=== PATIENT | male | born 1940 | race Caucasian/White ===

== ENCOUNTER 2025-02-24 16:05 | Emergency (ER) | payer SELFPAY ==
[2025-02-24 16:06] VITALS: BP 134/75
[2025-02-24 16:14] VITALS: BMI 28.3
[2025-02-24 16:24] LABS: % Basophils 0.8 % (0-2); % Eosinophils 3.5 % (0-6); % Immature Granulocytes 0.4 % (0-0.5); % Lymphocytes 10.8 % (20.5-51.1); % Monocytes 13.4 % (1.7-9.3); % Neutrophils 71.1 % (42.2-75.2); Absolute Basophils 0.1 10^3/uL (0-0.2); Absolute Eosinophils 0.3 10^3/uL (0-0.7); Absolute Monocytes 1.2 10^3/uL (0.1-0.6); Absolute Neutrophils 6.6 10^3/uL (1.4-6.5); Hemoglobin 14.4 g/dL (13.0-18.0); Mean Corp Hgb Conc. 34.3 g/dL (33.0-37.0); Mean Corpuscular Hgb 30.7 pg (27.0-31.0); Mean Corpuscular Volume 89.6 fL (80.0-94.0); Mean Platelet Volume 10.2 fL (7.4-10.4); Nucleated Red Blood Cells % 0 % (-); Platelet Count 198 10^3/uL (130-400); Red Blood Cell Count 4.69 10^6/uL (4.70-6.10); Red Cell Dist. Width 14.6 % (11.5-14.5); White Blood Cell Count 9.2 10^3/uL (4.8-10.8)
[2025-02-24 16:49] LABS: ALT (SGPT) 42 U/L (0-50); AST (SGOT) 47 U/L (17-59); Albumin 4.2 g/dl (3.5-5.0); Alkaline Phosphatase 90 U/L (38-126); Blood Urea Nitrogen 18 mg/dl (9-20); Carbon Dioxide 25 mmol/L (22-30); Chloride 112 mmol/L (98-107); Estimated Creatinine Clearance 48 ml/min; Glucose 122 mg/dl (70-99); Potassium 3.7 mmol/L (3.5-5.1); Sodium 141 mmol/L (135-145); Total Bilirubin 1.1 mg/dl (0.2-1.3); Total Protein 6.7 g/dl (6.3-8.2); eGFR > 60.00
[2025-02-24 17:00] VITALS: BP 129/72
--- NOTE | 2025-02-24 17:15 | ED.GENMED ---
History of Present Illness
General
Chief Complaint: Fainting Sensation
Source: patient, family (Daughter) and other (External records from urgent care)
Exam Limitations: none
Time Seen by Provider: 02/24/25 16:19
Nursing documentation reviewed up to this point in time: agreed with
History of Present Illness
History of Present Illness:
84-year-old male with a past medical history of hypertension, hyperlipidemia, atrial fibrillation status post watchman, CVA on Plavix who presents to the emergency department with his daughter for evaluation after syncopal episode. Patient reports
that he was feeling mildly lightheaded this morning; when he went to lunch he passed out. He apparently collapsed and struck his head. He initially went to urgent care for assessment and was directed to the emergency room for full evaluation. He
says that he feels completely normal now has no complaints. He denies any associated chest pain, shortness of breath, palpitations. He denies any headache, neck pain. He denies any nausea or vomiting. He denies any injuries to his extremities.
He denies any other complaints. He was noted to be in atrial fibrillation on urgent care EKG; he has known history of A-fib. He follows with Dr. Fuchs for cardiology.
Past History
Past History
ED Past Medical History: CAD, GERD, HTN, Hypercholesterolemia and Other (Arthritis, vertigo, kidney stones, hiatal hernia)
Social History
Tobacco: Non-smoker
Personal:
Living: with family
Employment: Retired
Review of Systems
Review of Systems
All Other Systems: ROS reviewed and negative except as documented in HPI and ROS
Constitutional: Denies fever
Respiratory: Denies trouble breathing
Cardiac: Reports syncope; Denies chest pain or diaphoresis
ABD/GI: Denies abdominal pain, nausea, vomiting or diarrhea
: Denies flank pain
Musculoskeletal: Denies joint pain, neck pain or back pain
Neurological: Denies headache
Phy Exam
Physical Exam
Physical Exam:
General: Awake, alert, oriented x3; no acute distress
Head: Normocephalic, atraumatic
Eyes: Conjunctiva normal, EOMI, pupils equal round reactive to light bilaterally
Throat: Airway intact, handling secretions
Neck: Trachea midline, no cervical spine tenderness
Lungs: Clear to auscultation bilaterally, no wheezing, rales, rhonchi
Heart: Regular rate and irregular rhythm, no murmurs, gallops, or rubs
Abd: Soft, non distended, nontender
Neuro: Cranial nerves grossly intact, speech fluid, no gross motor or sensory deficits
Skin: No signs of trauma
Extremities: Atraumatic, equal pulses in all extremities
Scores
Heart Failure Risk
Heart Failure Risk Score: Not Applicable
Heart Score for Chest Pain Patients
STEMI patient?: Not applicable
Withdrawal Assessment of Alcohol
Withdrawal Assessment Completed?: Not applicable
Course
Orders/Labs/Results
Orders:
Orders
02/24/25 16:09
EKG [Electrocardiogram (*1)] Urgent
Reason for Study: Vertigo / Dizzy
EKG- Treatment ONCE
02/24/25 16:14
Complete Blood Count/With Diff Urgent
Comprehensive Metabolic Panel Urgent
02/24/25 17:15
CT Head W/o Iv Contrast Urgent
Comment:
Reason For Exam: syncope and collapse, head strike on Plavix
Abnormal Lab Results
02/24/25
16:14
RBC 4.69 L 10^6/uL
(4.70-6.10)
RDW 14.6 H %
(11.5-14.5)
Absolute Neuts (auto) 6.6 H 10^3/uL
(1.4-6.5)
Absolute Lymphs (auto) 1.0 L 10^3/uL
(1.2-3.4)
Absolute Monos (auto) 1.2 H 10^3/uL
(0.1-0.6)
Lymphocytes % 10.8 L %
(20.5-51.1)
Monocytes % 13.4 H %
(1.7-9.3)
Chloride 112 H mmol/L
(98-107)
Glucose 122 H mg/dl
(70-99)
02/24/25 16:14
02/24/25 16:14
Vital Signs
Initial and Last Documented VS:
Initial Vital Signs
Pulse Resp BP Pulse Ox
80 18 134/75 98
02/24/25 16:06 02/24/25 16:06 02/24/25 16:06 02/24/25 16:06
Last Documented Vital Signs
Pulse Resp BP Pulse Ox
70 18 129/72 93
02/24/25 17:45 02/24/25 17:45 02/24/25 17:00 02/24/25 17:45
MDM/Problems Addressed
Differential Diagnosis Includes:
Orthostatic hypotension, vasovagal syncope, symptomatic A-fib, anemia, electrolyte derangement, dehydration
MDM/Problems Addressed:
84-year-old male presents to the emergency room after syncopal event. He did fall and strike his head; he takes Plavix. No other injuries. His vital signs are all normal here. He has no complaints here. Physical exam as documented. His EKG
shows atrial fibrillation with controlled ventricular rate. Will plan to place an IV check labs including a CBC and a CMP. Will check CT head. Will monitor on telemetry and reassess after the above.
Labs reviewed: CBC and CMP no clinically significant abnormalities. CT head nothing acute. Patient monitored on telemetry here with no events. He is feeling well he wishes to go home�I did offer admission for observation given his history but he
feels comfortable going home and will follow-up with his air chipper as an outpatient. I wonder if perhaps he may have been symptomatic from A-fib today although he has been rate controlled here. He is already on metoprolol with heart rate in the
60s to 70s would hold on adjustments at this point. We spoke about return precautions all questions answered.
Chronic conditions affecting care:
Atrial fibrillation;CVA on Plavix complicates head strike
*Radiology
Radiology exam reviewed: radiology read reviewed
*Pulse Oximetry
Patient hypoxic: no
*EKG
Interpreted by ED Provider?: Yes
Heart Rate: 78
Rate: normal
Rhythm: a-fib and PVC's
[place]: normal axis
Interval: normal interval
QRS Pattern: normal QRS
Ischemia: other (Nonspecific T wave abnormality)
*Critical Care Note
Total Time (30-74mins, 75-104mins- exclusive of procedures): Not Applicable
Data Reviewed
Review of Other/Old Records Reveals: Labs and Records
Source: patient, family and other (Reviewed external records from urgent care which patient has at bedside)
Patient Management
Social determinants of health affecting care: Strong social support
Escalation/DeEscalation of care consider admission/obs:
Offered admission�shared decision making discharged with cardiology follow-up as an outpatient
ED Attending Note
-
Portions of this chart may have been created with voice recognition software.� Occasional wrong word or��sound alike� substitutions may have occurred due to the inherent limitations of voice recognition software.
Discharge Plan
Departure
Patient Disposition: Home (Routine Discharge)
Date of Disposition: 02/24/25
Time of Disposition: 19:53
Patient with high blood pressure during this ER visit?: No
Discharge Problem:
Syncope, Atrial fibrillation
Instructions: Syncope (Fainting) (DC)
Prescriptions:
No Action
simvastatin 40 MG tablet
40 mg PO QPM
amlodipine 5 MG tablet
5 mg PO DAILY
ondansetron 4 MG tablet,disintegrating
4 mg PO PRN PRN (Reason: nausea)
metoprolol tartrate 25 MG tablet
12.5 mg PO BID
rivaroxaban [Xarelto] 15 MG tablet
15 mg PO QPM
ondansetron [Zofran ODT] 8 MG tablet,disintegrating
8 mg PO TIDPRN PRN (Reason: vomiting) Qty: 20 0RF
meclizine 25 MG tablet
25 mg PO Q8HPRN PRN (Reason: nausea or vertigo) Qty: 30 0RF
Referrals:
Saw Fuchs, DO [Non-Admitting Privileges, Cardiology] - Follow up in 5-7 days
UNKNOWN - PT DOES,NOT KNOW [Unknown Provider]
Interventions
Interventions:
*Risk Screen - Suicide Last Done: 02/24/25 16:09
*General Assessment Last Done: 02/24/25 16:09
*Neglect/Abuse Screening Last Done: 02/24/25 16:09
*ED- Fall Risk Assessment Last Done: 02/24/25 16:09
*ED COVID-19 Vaccine History Last Done: 02/24/25 16:10
ED- Cardiac Assessment Last Done: 02/24/25 16:44
ED- Neurological Assessment Last Done: 02/24/25 16:44
Discharge Date and Time
Print Language: LATVIAN
[2025-02-24 19:02] VITALS: BP 140/61
== END 2025-02-24 20:11 | disposition home or self-care (01) ==
LOC: EMR 16:05
PROVIDERS: EMERGENCY PHYSICIAN Emergency Medicine; FAMILY PHYSICIAN Family Medicine
DX: R55 Syncope and collapse (principal); S09.90XA Unspecified injury of head, initial encounter; W22.8XXA Striking against or struck by other objects, initial encounter; I48.91 Unspecified atrial fibrillation; E78.00 Pure hypercholesterolemia, unspecified; I10 Essential (primary) hypertension; K44.9 Diaphragmatic hernia without obstruction or gangrene; M19.90 Unspecified osteoarthritis, unspecified site; I51.7 Cardiomegaly; I25.10 Atherosclerotic heart disease of native coronary artery without angina pectoris; I25.2 Old myocardial infarction; Z86.73 Personal history of transient ischemic attack (TIA), and cerebral infarction without residual deficits; Z79.02 Long term (current) use of antithrombotics/antiplatelets; Z79.899 Other long term (current) drug therapy
CPT/HCPCS: 99284; 70450; 80053; 85025; 93005